=== PATIENT | female | born 1995 | race Two or more races ===

== ENCOUNTER → 2022-03-27 | Outpatient (CLI) | payer MEDICAID | END | disposition home or self-care (01) | LOC: LAB 09:05 | PROVIDERS: ATTEND Obstetrics & Gynecology | DX: Z34.80 Encounter for supervision of other normal pregnancy, unspecified trimester (principal); Z3A.00 Weeks of gestation of pregnancy not specified ==

== ENCOUNTER 2022-05-01 08:42 | Observation (INO) | payer MEDICAID ==
[~2022-05-01] VITALS: Ht 167.6 cm; Wt 77.1 kg
[2022-05-01 09:25] LABS: Urine Bacteria MOD /hpf (None Seen); Urine Blood Negative /uL (Negative); Urine Mucus FEW (None Seen); Urine Specific Gravity 1.037 (1.001-1.035); Urine WBC 26 /hpf (0 - 5)
[2022-05-01] MEDS ORDERED: SODIUM CHLORIDE 0.9% 1,000 ML IV ONE (09:30)
[2022-05-01] MEDS ORDERED: PREN-129 PO (09:31)
[2022-05-01] MEDS ORDERED: LACTATED RINGER'S 1,000 ML IV ONE ×2 (13:15→16:30)
== END 2022-05-01 19:08 | disposition home or self-care (01) ==
LOC: LDRP 08:42 → UNDOADMOB 08:42 → LDRP 09:15
PROVIDERS: ADMIT Obstetrics & Gynecology; ATTEND Obstetrics & Gynecology
DX: O98.513 Other viral diseases complicating pregnancy, third trimester (principal); U07.1 COVID-19; O21.2 Late vomiting of pregnancy; O26.893 Other specified pregnancy related conditions, third trimester; R19.7 Diarrhea, unspecified; Z3A.39 39 weeks gestation of pregnancy
CPT/HCPCS: 36415; 59025; 76805; 76818; 81001; 81002; 87426; 94760; 96360; 96361; G0378; U0003

== ENCOUNTER 2022-05-02 12:00 | Inpatient (IN) | payer MEDICAID ==
[~2022-05-02] VITALS: Ht 172.7 cm; Wt 81.7 kg
[~2022-05-02 12:00] MED LIST: PREN-129 PO
[2022-05-02] MEDS ORDERED: NS/OXYTOCIN 20UNITS 1,000 ML IV ONE (12:21)
[2022-05-02] MEDS ORDERED: LIDOCAINE 2%HCL (LOCAL ANESTH.) INJ 10ml MDV IJ PRN (12:30)
[2022-05-02] MEDS ORDERED: BUTORPHANOL TARTRATE 2 MG/1 ML VIAL IV PRN ×2 (12:30)
[2022-05-02] MEDS ORDERED: PHISODERM TOP SOLN 240ML BTL TOP PRN (12:30)
[2022-05-02] MEDS ORDERED: PROMETHAZINE HCL 25 MG/ML 1ML IV PRN (12:30)
[2022-05-02] MEDS ORDERED: LACTATED RINGER'S 1,000 ML IV SCH (12:30)
[2022-05-02 13:09] LABS: Basophils # (auto) 0 10 ^3/uL (0-0.2); Eosinophils # (auto) 0 10 ^3/uL (0-0.8); Eosinophils % (auto) 0.1 % (0.0-7.0); Lymphocytes # (auto) 1.1 10 ^3/uL (0.4-5.4); Lymphocytes % (auto) 10.1 % (10.0-50.0); White Blood Cell 11.1 10^3/uL (4.4-10.8)
[2022-05-02 13:11] LABS: Basophils % (auto) 0.2 % (0.0-2.0); Hematocrit 34.3 % (36.0-46.0); Hemoglobin 11.3 g/dL (12.2-16.2); Mean Corpuscular Hemoglobin 24.6 pg (28.0-32.0); Mean Corpuscular Hgb Conc. 32.9 g/dL (32.0-36.0); Mean Corpuscular Volume 74.9 fL (80.0-100.0); Monocytes # (auto) 0.7 10 ^3/uL (0-1.3); Monocytes % (auto) 6.6 % (0.0-12.0); Neutrophils # (auto) 9.2 10 ^3/uL (1.6-8.6); Red Blood Cells 4.57 10^6/uL (4.0-5.20); Red Cell Distribution Width 16.4 % (11.8-14.3)
[2022-05-02 13:24] LABS: INR 0.82 (0.9-1.15); Partial Thromboplastin Time 26.2 sec (24.6-33.4)
[2022-05-02 13:27] LABS: Albumin 2.5 g/dL (3.4-5.0); Potassium 4.2 mmol/L (3.5-5.1)
[2022-05-02 13:30] LABS: BUN/Creatinine Ratio 11.4; Bilirubin, Total 0.5 mg/dL (0.2-1.0); Total Protein 7.1 g/dL (6.4-8.2)
[2022-05-02] MEDS ORDERED: METHYLERGONOVINE MALEATE 0.2 MG/ML AMP IM ONE (13:30)
[2022-05-02] MEDS ORDERED: NS/OXYTOCIN 20UNITS 500 ML IV ONE ×2 (13:30→14:00)
[2022-05-02] MEDS ORDERED: miSOPROStol 100 mcg TAB PR PRN (13:30)
[2022-05-02] MEDS ORDERED: CARBOPROST TROMETHAMINE 250 MCG/1ML VIAL IM ONE (13:30)
[2022-05-02] MEDS ORDERED: miSOPROStol 100 mcg TAB SL PRN (13:30)
[2022-05-02 17:00] VITALS: BP 125/65
[2022-05-02] MEDS ORDERED: ACETAMINOPHEN 325 MG TAB PO PRN (19:00)
[2022-05-02] MEDS ORDERED: ONDANSETRON ODT 4 MG TAB PO PRN (19:00)
[2022-05-02] MEDS: IBUPROFEN 600 MG TAB PO PRN (19:09)
[2022-05-02 19:30] VITALS: BP 120/70
[2022-05-02 23:00] VITALS: BP 120/71
[2022-05-02] MEDS: DOCUSATE SOD 100 MG CAP PO SCH (23:03)
[2022-05-03 03:00] VITALS: BP 118/67
[2022-05-03] MEDS: IBUPROFEN 600 MG TAB PO PRN ×2 (03:19→16:19)
[2022-05-03 06:13] LABS: Urine Bacteria FEW /hpf (None Seen); Urine Blood 3+ /uL (Negative); Urine Mucus FEW (None Seen); Urine Specific Gravity 1.009 (1.001-1.035); Urine WBC 37 /hpf (0 - 5)
[2022-05-03 06:27] LABS: Alcohol, Urine < 3.0 mg/dL (0-10); Amphetamine Screen, Urine NEGATIVE (NEGATIVE); Barbiturate Scree,Urine NEGATIVE (NEGATIVE); Benzodiazephine Screen, Urine NEGATIVE (NEGATIVE); Cannabinoid Screen, Urine NEGATIVE (NEGATIVE); Cocaine Screen, Urine NEGATIVE (NEGATIVE); Opiate Scree,Urine NEGATIVE (NEGATIVE); Phencyclidine Screen, Urine NEGATIVE (NEGATIVE)
[2022-05-03 07:00] VITALS: BP 114/74
[2022-05-03] MEDS: DERMOPLAST 60ML BOTTLE TOP PRN ×2 (07:33→07:34)
[2022-05-03] MEDS: WITCH HAZEL-GLYCERIN PAD TOP PRN ×2 (07:33→07:35)
[2022-05-03 08:06] LABS: RPR Non Reactive (Non Reactive)
[2022-05-03 11:00] VITALS: BP 116/68
[2022-05-03 15:00] VITALS: BP 119/65
[2022-05-03 19:00] VITALS: BP 101/63
[2022-05-03] MEDS: DOCUSATE SOD 100 MG CAP PO SCH (22:27)
[2022-05-03 23:30] VITALS: BP 110/65
[2022-05-04] MEDS: IBUPROFEN 600 MG TAB PO PRN (02:28)
[2022-05-04 02:45] VITALS: BP 106/57
== END 2022-05-04 06:50 | disposition home or self-care (01) | DRG 560 ==
LOC: LDRP 12:00
PROVIDERS: ADMIT Obstetrics & Gynecology; ATTEND Obstetrics & Gynecology
PROC: 10E0XZZ Delivery of Products of Conception, External Approach (ICD-10-PCS; principal; 2022-05-02)
PROC: 10907ZC Drainage of Amniotic Fluid, Therapeutic from Products of Conception, Via Natural or Artificial Opening (ICD-10-PCS; 2022-05-02)
PROC: 0KQM0ZZ Repair Perineum Muscle, Open Approach (ICD-10-PCS; 2022-05-02)
PROC: 3E0DXGC Introduction of Other Therapeutic Substance into Mouth and Pharynx, External Approach (ICD-10-PCS; 2022-05-02)
PROC: 0W8NXZZ Division of Female Perineum, External Approach (ICD-10-PCS; 2022-05-02)
DX: O98.52 Other viral diseases complicating childbirth (principal); Z37.0 Single live birth; U07.1 COVID-19; O69.81X0 Labor and delivery complicated by cord around neck, without compression, not applicable or unspecified; O70.1 Second degree perineal laceration during delivery; Z3A.39 39 weeks gestation of pregnancy; Z86.19 Personal history of other infectious and parasitic diseases
CPT/HCPCS: 36415; 59409; 80053; 80307; 81001; 85025; 85610; 85730; 86592; 86850; 86900; 86901; 94760; 96360; 96361; 96372; G0378; J2001